=== PATIENT | male | born 1950 | race Hispanic/Latino ===

== ENCOUNTER → 2024-01-24 16:44 | Outpatient (REF) | payer SELFPAY | LOC: RAD 16:44 | PROVIDERS: ATTENDING PHYSICIAN Family Medicine | DX: E78.5 Hyperlipidemia, unspecified (principal) | CPT/HCPCS: 75571 ==

== ENCOUNTER → 2024-03-24 15:14 | Outpatient (REF) | payer OTHER, SELFPAY | LOC: RCS 15:14 | PROVIDERS: ATTENDING PHYSICIAN Student in an Organized Health Care Education/Training Program; FAMILY PHYSICIAN Family Medicine; REFERRING PHYSICIAN Internal Medicine Cardiovascular Disease | DX: Z01.818 Encounter for other preprocedural examination (principal) | CPT/HCPCS: 93005 ==

== ENCOUNTER → 2024-05-02 13:19 | Outpatient (REF) | payer OTHER, SELFPAY | LOC: HWRCS 13:19 | PROVIDERS: ATTENDING PHYSICIAN Internal Medicine Cardiovascular Disease; FAMILY PHYSICIAN Family Medicine | DX: I44.1 Atrioventricular block, second degree (principal) | CPT/HCPCS: 93306 ==

== ENCOUNTER → 2024-06-12 08:42 | Outpatient (REF) | payer OTHER, SELFPAY | LOC: RCS 08:42 | PROVIDERS: ATTENDING PHYSICIAN Internal Medicine Cardiovascular Disease; FAMILY PHYSICIAN Family Medicine; REFERRING PHYSICIAN Family Medicine | DX: I44.1 Atrioventricular block, second degree (principal) | CPT/HCPCS: 93225; 93226 ==

== ENCOUNTER → 2024-08-05 09:00 | Outpatient (REF) | payer OTHER, SELFPAY | LOC: DHSLP 09:00 | PROVIDERS: ATTENDING PHYSICIAN Internal Medicine Critical Care Medicine; FAMILY PHYSICIAN Family Medicine | DX: G47.30 Sleep apnea, unspecified (principal); R06.83 Snoring; R40.0 Somnolence | CPT/HCPCS: 95800 ==

== ENCOUNTER 2024-12-01 06:33 | Day surgery (SDC) | payer OTHER, SELFPAY ==
[2024-11-25 10:51] LABS: Hematocrit 48.7 % (39.0-52.0); Hemoglobin 16.8 g/dL (13.0-18.0); Mean Corp Hgb Conc. 34.2 g/dL (33.0-37.0); Mean Corpuscular Hgb 32.7 pg (27.0-31.0); Mean Corpuscular Volume 95.7 fL (80.0-94.0); Mean Platelet Volume 11.5 fL (7.4-10.4); Platelet Count 138 10^3/uL (130-400); Red Blood Cell Count 5.13 10^6/uL (4.70-6.10); Red Cell Dist. Width 11.9 % (11.5-14.5); White Blood Cell Count 5.9 10^3/uL (4.8-10.8)
[2024-11-25 11:20] LABS: Blood Urea Nitrogen 18 mg/dl (9-20); Calcium 9.2 mg/dl (8.4-10.2); Carbon Dioxide 27 mmol/L (22-30); Chloride 102 mmol/L (98-107); Glucose 93 mg/dl (70-99); Potassium 4.6 mmol/L (3.5-5.1); Sodium 141 mmol/L (135-145); eGFR > 60.00
[2024-11-25 14:37] VITALS: BMI 25.7
[2024-12-01 09:37] VITALS: BMI 25.7
[2024-12-01 09:49] VITALS: BP 139/80
[2024-12-01] MEDS: CELEBREX 200 MG PO (10:15)
[2024-12-01] MEDS: TYLENOL 1000 MG PO (10:15)
[2024-12-01] MEDS: NORMOSOL-R/PLASMALYTE-A 1000 IV (10:16)
[2024-12-01 12:16] VITALS: BP 143/85
[2024-12-01 12:30] VITALS: BP 138/67
[2024-12-01 12:45] VITALS: BP 130/71
== END 2024-12-01 13:20 | disposition home or self-care (01) ==
LOC: SDS 06:33
PROVIDERS: ATTENDING PHYSICIAN Student in an Organized Health Care Education/Training Program; FAMILY PHYSICIAN Family Medicine
DX: M1A.0721 Idiopathic chronic gout, left ankle and foot, with tophus (tophi) (principal); M20.5X2 Other deformities of toe(s) (acquired), left foot; L84 Corns and callosities
CPT/HCPCS: 28289; 28020; 88304; 36415; 80048; 85027